=== PATIENT | female | born 1990 | race Caucasian/White ===

== ENCOUNTER 2023-10-16 16:45 | Outpatient (CLI) | payer MEDICAID | END 2023-10-16 16:46 | disposition critical access hospital (66) | LOC: EMS 16:45 | DX: J02.9 Acute pharyngitis, unspecified (principal); R13.10 Dysphagia, unspecified | CPT/HCPCS: A0425; A0429; A0999 ==

== ENCOUNTER 2023-10-16 17:09 | Emergency (ER) | payer MEDICAID ==
[2023-10-16 17:32] LABS: RAPID STREP SCREEN POSITIVE (Negative)
--- NOTE | 2023-10-16 18:22 | ED Physician Documentation ---
PD HPI URI - Stated complaint Stated Complaint: SORE THROAT - Chief complaint Chief Complaint: Heent - History obtained from History obtained from: Patient - History of Present Illness Timing - onset: How many days ago (2-3) Timing duration: Days (2-3) Timing details: Gradual onset, Still present Associated symptoms: Chills, Sore throat, Swollen nodes. No: Nasal congestion, Dry cough Contributing factors: No: Sick contact, Immunocompromised Similar symptoms before: Has not had sx before Review of Systems Constitutional: reports: Chills, Myalgias. 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: Other - Present Medications Home Medications: Ambulatory Orders Medication Instructions Recorded Confirmed Azithromycin [Zithromax] 250 mg PO DAILY 4 Days #4 tablet 10/16/23 - Allergies Allergies/Adverse Reactions: Allergies Allergy/AdvReac Type Severity Reaction Status Date / Time cefaclor [From Ceclor] Allergy Unknown Verified 10/16/23 17:13 Penicillins Allergy Unknown Verified 10/16/23 17:13 sulfamethoxazole Allergy Unknown Verified 10/16/23 17:13 [From Septra] trimethoprim [From Junra] Allergy Unknown Verified 10/16/23 17:13 - Social History Does the pt smoke?: Yes Smoking Status: Current every day smoker Does the pt drink ETOH?: No Does the pt have substance abuse?: Yes Substance Use and Type: Other - Immunizations Immunizations are current?: Yes PD ED PE NORMAL - Vitals Vital signs reviewed: Yes - General General: Alert and oriented X 3, No acute distress, Well developed/nourished - HEENT HEENT: Ears normal, Moist mucous membranes. No: Pharynx benign (redness with exudate both tonsils without peritonsilar swelling nor deviation. ) - Neck Neck: Supple, no meningeal sign, Other (anterior adenopathy noted. ) - Cardiac Cardiac: RRR, No murmur Results - Vitals Vitals: Vital Signs - 24 hr 10/16/23 10/16/23 17:13 19:46 Temperature 36.6 C 36.9 C Heart Rate 99 92 Respiratory 18 12 Rate Blood Pressure 125/96 H 127/98 H O2 Saturation 97 100 Oxygen O2 Source Room air - Labs Labs: Laboratory Tests 10/16/23 17:20 Group A Strep Rapid POSITIVE H PD Medical Decision Making - ED course Complexity details: considered differential (sothre throat with tonsillar swel ling and exudate with positive strep test. no peritonsillar swelling nor uvular deviation. ), d/w patient Departure - Departure Disposition: 01 Home, Self Care Clinical Impression: Acute streptococcal tonsillitis, unspecified Condition: Stable Record reviewed to determine appropriate education?: Yes Instructions: ED Strep Pharyngitis Conf Prescriptions: Azithromycin [Zithromax] 250 mg PO DAILY 4 Days #4 tablet Comments: Your strep test is positive. We started you on azithromycin antibiotic with 2 tablets this evening along with a dose of a Decadron steroid for inflammation. This commonly helps reduce the pain more promptly in conjunction with antibiotics. Take the azithromycin 250 mg tablet daily for 4 more days. There is some mild amount of MAC related/azithromycin resistance for the strep throats. Recheck if not resolved completely over the next few days. You will want to avoid close contact or sharing cups and drinking utensils etc. You are typically considered noninfectious after 24 hours on the antibiotics. I sent your prescription to the [facility]. Stay well-hydrated. Tylenol ibuprofen if needed for pains or fevers. It is okay to return to the [facility] detox center. Forms: PCP List Discharge Date/Time: 10/16/23 19:46
[2023-10-16] MEDS ORDERED: ACETAMINOPHEN 325 MG TABLET PO STA (18:35)
[2023-10-16] MEDS ORDERED: dexAMETHasone 4 MG TABLET PO STA (18:35)
[2023-10-16] MEDS ORDERED: diphenhydrAMINE ELIXIR 25 MG/10 ML UDC PO STA (18:35)
[2023-10-16] MEDS ORDERED: AZITHROMYCIN 250 MG TABLET PO STA ×2 (18:35→19:17)
[2023-10-16 19:51] VITALS: BP 127/98; O2SAT 100
== END 2023-10-16 19:46 | disposition home or self-care (01) ==
LOC: ED 17:09
DX: J03.00 Acute streptococcal tonsillitis, unspecified (principal); F17.200 Nicotine dependence, unspecified, uncomplicated
CPT/HCPCS: 87430; 99283; A9270; J8540

== ENCOUNTER 2023-10-18 18:19 | Outpatient (CLI) | payer MEDICAID | END 2023-10-18 18:20 | disposition critical access hospital (66) | LOC: EMS 18:19 | DX: R56.9 Unspecified convulsions (principal); R40.0 Somnolence | CPT/HCPCS: A0425; A0429; A0999 ==

== ENCOUNTER 2023-10-18 18:39 | Emergency (ER) | payer MEDICAID ==
--- NOTE | 2023-10-18 20:16 | ED Physician Documentation ---
History of Present Illness - Stated complaint Stated Complaint: SEIZURE - Chief complaint Chief Complaint: Neuro - History obtained from History obtained from: Patient - Additonal information Additional information: 33yF with pmh seizure disorder not previously on AED until 2 days ago when she checked into [facility] for fentanyl detox p/w 5 min witnessed [facility] seizure tonight. patient has been taking keppra 500mg bid at [facility] per chart review but states she was not on it previously. Has had seizure disorder X 5 years and has infrequent seizures. last sz about 1 year ago. denies fever, tam, nausea, pain anywhere, FND. 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: Other - Present Medications Home Medications: Ambulatory Orders Medication Instructions Recorded Confirmed Azithromycin [Zithromax] 250 mg PO DAILY 4 Days #4 tablet 10/16/23 Levetiracetam [Keppra] 750 mg PO BID #60 tablet 10/18/23 - Allergies Allergies/Adverse Reactions: Allergies Allergy/AdvReac Type Severity Reaction Status Date / Time cefaclor [From Ceclor] Allergy Unknown Verified 10/18/23 18:53 Penicillins Allergy Unknown Verified 10/18/23 18:53 sulfamethoxazole Allergy Unknown Verified 10/18/23 18:53 [From Septra] trimethoprim [From Septra] Allergy Unknown Verified 10/18/23 18:53 - Social History Does the pt smoke?: Yes Smoking Status: Current every day smoker Does the pt drink ETOH?: No Does the pt have substance abuse?: Yes Substance Use and Type: Other - Immunizations Immunizations are current?: Yes PD ED PE NORMAL - Vitals Vital signs reviewed: Yes - General General: Alert and oriented X 3, No acute distress, Well developed/nourished - HEENT HEENT: Atraumatic, PERRL, EOMI - Neck Neck: Supple, no meningeal sign - Cardiac Cardiac: RRR - Respiratory Respiratory: No respiratory distress, Clear bilaterally - Abdomen Abdomen: Non tender, Non distended - Derm Derm: Normal color, Warm and dry - Extremities Extremities: No deformity - Neuro Neuro: Alert and oriented X 3, 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, No motor deficit, No sensory deficit, Normal speech Eye Opening: Spontaneous Motor: Obeys Commands Verbal: Oriented GCS Score: 15 - Psych Psych: Normal mood, Normal affect Results - Vitals Vitals: Vital Signs - 24 hr 10/18/23 10/18/23 18:49 20:41 Temperature 36.5 C 36.4 C L Heart Rate 75 106 H Respiratory 22 21 Rate Blood Pressure 126/75 122/74 O2 Saturation 99 97 Oxygen O2 Source Room air - Labs Labs: Laboratory Tests 10/18/23 10/18/23 10/18/23 21:28 21:28 22:24 WBC 14.9 H RBC 4.03 L Hgb 12.4 Hct 36.7 L MCV 91.1 MCH 30.8 MCHC 33.8 RDW 13.2 Plt Count 404 MPV 8.2 Neut # (Auto) 11.4 H Lymph # (Auto) 2.7 Kendall # (Auto) 0.5 Eos # (Auto) 0.0 Baso # (Auto) 0.1 Absolute Nucleated RBC 0.00 Nucleated RBC % 0.0 Sodium Potassium Chloride Carbon Dioxide Anion Gap BUN Creatinine Estimated GFR (MDRD) Glucose Calcium Magnesium Total Bilirubin AST ALT Alkaline Phosphatase Total Protein Albumin Globulin Albumin/Globulin Ratio Lipase Urine Color YELLOW Urine Clarity HAZY Urine pH 6.0 Ur Specific [place] 1.025 Urine Protein TRACE Urine Glucose (UA) NEGATIVE Urine Ketones >=80 H Urine Occult Blood NEGATIVE Urine Nitrite NEGATIVE Urine Bilirubin NEGATIVE Urine Urobilinogen 1 (NORMAL) Ur Leukocyte Esterase NEGATIVE Urine RBC 0-5 Urine WBC 0-3 Ur Squamous Epith Cells MANY Squamous H Urine Bacteria Moderate H Ur Microscopic Review INDICATED Urine Culture Comments NOT INDICATED Urine HCG, Qual NEGATIVE Salicylates Urine Opiates Screen NEGATIVE Ur Buprenorphine Scrn NEGATIVE Ur Oxycodone Screen NEGATIVE Urine Methadone Screen NEGATIVE Acetaminophen Ur Barbiturates Screen NEGATIVE Ur Tricyclics Screen NEGATIVE Ur Phencyclidine Scrn NEGATIVE Ur Amphetamine Screen POSITIVE H U Methamphetamines Scrn POSITIVE H U Benzodiazepines Scrn NEGATIVE Urine Cocaine Screen NEGATIVE U Cannabinoids Screen NEGATIVE Ur Drug Screen Comment CUTOFF CONC BELOW: Ethyl Alcohol 10/18/23 22:24 WBC RBC Hgb Hct MCV MCH MCHC RDW Plt Count MPV Neut # (Auto) Lymph # (Auto) Kendall # (Auto) Eos # (Auto) Baso # (Auto) Absolute Nucleated RBC Nucleated RBC % Sodium 140 Potassium 3.7 Chloride 105 Carbon Dioxide 24 Anion Gap 11.0 BUN 27 H Creatinine 0.8 Estimated GFR (MDRD) 82 L Glucose 105 H Calcium 9.1 Magnesium 1.8 Total Bilirubin 0.2 AST 13 ALT 22 Alkaline Phosphatase 81 Total Protein 7.2 Albumin 4.0 Globulin 3.2 Albumin/Globulin Ratio 1.3 Lipase < 10 L Urine Color Urine Clarity Urine pH Ur Specific [place] Urine Protein Urine Glucose (UA) Urine Ketones Urine Occult Blood Urine Nitrite Urine Bilirubin Urine Urobilinogen Ur Leukocyte Esterase Urine RBC Urine WBC Ur Squamous Epith Cells Urine Bacteria Ur Microscopic Review Urine Culture Comments Urine HCG, Qual Salicylates < 1.5 Urine Opiates Screen Ur Buprenorphine Scrn Ur Oxycodone Screen Urine Methadone Screen Acetaminophen 2.1 Ur Barbiturates Screen Ur Tricyclics Screen Ur Phencyclidine Scrn Ur Amphetamine Screen U Methamphetamines Scrn U Benzodiazepines Scrn Urine Cocaine Screen U Cannabinoids Screen Ur Drug Screen Comment Ethyl Alcohol < 10.0 PD Medical Decision Making - ED course ED course: 33yF with pmh seizure disorder p/w seizure tonight with postictal period, now resolved. fingerstick unremarkable. call placed to neurology. patient not previously on AEDs until 2 days ago when she started keppra 500 bid. likely will need loading dose and to increase her prescription. d/w Dr. Fink, neurologist at [facility] re: patient seizure. He recommends CT head, cbc, abdominal panel, ua, hcg, tox screen, and if normal, referral to outpatient neurology and outpatient MRI and eeg. Recommend loading dose of keppra 1500 IV X 1 and then prescribing 750 bid keppra. Social determinants of care which may impede management and follow-up include history of fentanyl abuse. 9:30pm - patient with nbnb n/v. 11:30pm - patient in NAD, no longer symptomatic. nausea resolved s/p zofran. labwork uncovered leukocytosis with wbc 14.9 without other acute findings. tox screen positive for methamphetamine and amphetamines. advised outpatient f/u with neurology. Printed new script for keppra 750 mg po bid per Dr. Fink's recs. return precautions discussed. Departure - Departure Disposition: 01 Home, Self Care Clinical Impression: Seizure Condition: Stable Instructions: First Aid Seizures Follow-Up: Arlen Graham P, [Physician No Access] - Prescriptions: Levetiracetam [Keppra] 750 mg PO BID #60 tablet Comments: You were seen in the emergency department for Seizure. Legally, you cannot drive for 6 months after having a seizure. I am printing a prescription for 750 mg of Keppra twice daily which you should take instead of the 500 mg twice daily you have been taking for the past couple of days at [facility]. Please follow-up with neurology (referral provided) and return to the emergency department if you have any new or worsening symptoms or other concerns. Forms: PCP List
[2023-10-18] MEDS ORDERED: FAMOTIDINE 20 MG/2 ML VIAL IVP STA (21:41)
[2023-10-18] MEDS ORDERED: ONDANSETRON 4 MG/2 ML VIAL IVP STA (21:41)
[2023-10-18] MEDS ORDERED: SODIUM CHLORIDE 0.9% 1,000 ML IV STA (21:41)
[2023-10-18 21:42] LABS: BILIRUBIN,URINE NEGATIVE (NEGATIVE); GLUCOSE, URINE (UA) NEGATIVE (NEGATIVE); KETONES,URINE (UA) >=80 mg/dL (NEGATIVE); LEUKOCYTE ESTERASE, URINE NEGATIVE (NEGATIVE); NITRITE,URINE NEGATIVE (NEGATIVE); OCCULT BLOOD,URINE NEGATIVE (NEGATIVE); PROTEIN,URINE TRACE mg/dL (NEGATIVE); UROBILINOGEN,URINE 1 (NORMAL) E.U./dL (NORMAL)
[2023-10-18 21:45] LABS: CLARITY,URINE HAZY (CLEAR)
[2023-10-18 21:50] LABS: BACTERIA,URINE Moderate /HPF (None Seen); RBC,URINE 0-5 /HPF (0-5); SQUAMOUS EPITHELIAL CELL,UR MANY Squamous (<= Few); WBC,URINE 0-3 /HPF (0-5)
[2023-10-18 21:51] LABS: AMPHETAMINE SCREEN,URINE POSITIVE (NEGATIVE); BARBITURATE SCREEN,UR NEGATIVE (NEGATIVE); BENZODIAZEPINES SCREEN, URINE NEGATIVE (NEGATIVE); BUPRENORPHINE SCREEN, URINE NEGATIVE (NEGATIVE); COCAINE SCREEN URINE NEGATIVE (NEGATIVE); HCG UR QUAL NEGATIVE; METHADONE SCREEN, URINE NEGATIVE (NEGATIVE); METHAMPHETAMINES SCREEN, URINE POSITIVE (NEGATIVE); OPIATE SCREEN, URINE NEGATIVE (NEGATIVE); OXYCODONE SCREEN, URINE NEGATIVE (NEGATIVE); THC CANNABINOID SCREEN, URINE NEGATIVE (NEGATIVE); TRICYCLIC ANTIDEPRESSANT,URINE NEGATIVE (NEGATIVE)
[2023-10-18 22:33] LABS: BASOPHILS # (AUTO) 0.1 10^3/uL (0.0-0.1); BASOPHILS % (AUTO) 0.4 %; EOSINOPHILS % (AUTO) 0.1 %; HCT - HEMATOCRIT 36.7 % (37.0-47.0); HGB - HEMOGLOBIN 12.4 g/dL (12.0-16.0); LYMPHOCYTES # (AUTO) 2.7 10^3/uL (1.5-3.5); LYMPHOCYTES % (AUTO) 18.4 %; MEAN CORPUSCULAR HEMOGLOBIN 30.8 pg (27.0-31.0); MEAN CORPUSCULAR HGB CONC 33.8 g/dL (32.0-36.0); MEAN CORPUSCULAR VOLUME 91.1 fL (81.0-99.0); MEAN PLATELET VOLUME 8.2 fL (7.9-10.8); MONOCYTES # (AUTO) 0.5 10^3/uL (0.0-1.0); MONOCYTES % (AUTO) 3.2 %; NEUTROPHILS # (AUTO) 11.4 10^3/uL (1.5-6.6); NEUTROPHILS % (AUTO) 76.3 %; PLT - PLATELET COUNT 404 10^3/uL (130-450); RED BLOOD COUNT 4.03 10^6/uL (4.20-5.40); RED CELL DISTRIBUTION WIDTH 13.2 % (12.0-15.0); WHITE BLOOD COUNT 14.9 x10^3/uL (4.8-10.8)
[2023-10-18 22:44] LABS: CARBON DIOXIDE - CO2 24 mmol/L (21-32); CHLORIDE 105 mmol/L (101-111); POTASSIUM 3.7 mmol/L (3.5-4.5); SODIUM 140 mmol/L (135-145)
[2023-10-18 22:45] LABS: ACETAMINOPHEN 2.1 ug/mL; ALBUMIN/GLOBULIN RATIO 1.3 (1.0-2.2); ALKALINE PHOSPHATASE 81 IU/L (42-121); ALT ALANINE AMINOTRANSFERASE 22 IU/L (10-60); AST ASPARTATE AMINOTRANSFERASE 13 IU/L (10-42); BILIRUBIN,TOTAL 0.2 mg/dL (0.2-1.0); BUN - BLOOD UREA NITROGEN 27 mg/dL (6-20); CALCIUM 9.1 mg/dL (8.5-10.3); CREATININE 0.8 mg/dL (0.6-1.3); ETOH - ETHANOL < 10.0 mg/dL; GFR - MDRD 82 (>89); GLUCOSE 105 mg/dL (74-104); LIPASE < 10 U/L (11-82); MAGNESIUM 1.8 mg/dL (1.7-2.3); SALICYLATE < 1.5 mg/dL; TOTAL PROTEIN 7.2 g/dL (6.4-8.9)
[2023-10-18] MEDS ORDERED: levETIRAcetam INJ 1,500 MG in SODIUM CHLORIDE 0.9% 100ML 100 ML IV SCH (23:00)
--- NOTE | 2023-10-18 23:08 | CT Report ---
PROCEDURE: HEAD WO INDICATIONS: seizure TECHNIQUE: Noncontrast 4.5 mm thick angled axial sections acquired from the foramen magnum to the vertex. For r adiation dose reduction, the following was used: automated exposure control, adjustment of mA and/or kV according to patient size. COMPARISON: None. FINDINGS: Image quality: Excellent. CSF spaces: Basal cisterns are patent. No extra-axial fluid collections. Ventricles are normal in size and shape. Brain: No midline shift. No intracranial masses or hemorrhage. Farmer-white matter interface is norm al. Skull and face: Calvarium and visualized facial bones are intact, without suspicious lesions. Sinuses: Visualized sinuses and mastoids are clear. IMPRESSION: 1. No acute intracranial process. Reviewed by: Karyna Wilhelm MD on 10/18/2023 11:07 PM [facility] Approved by: Karyna Wilhelm MD on 10/18/2023 11:07 PM [facility] Station ID: [id number]
[2023-10-18] MEDS ORDERED: levETIRAcetam 500 MG/5 ML VIAL IVP STA (23:23)
[2023-10-19 00:34] VITALS: BP 135/85; O2SAT 94
== END 2023-10-19 00:48 | disposition home or self-care (01) ==
LOC: EDUNIT# → ED 18:39
DX: G40.409 Other generalized epilepsy and epileptic syndromes, not intractable, without status epilepticus (principal); F17.200 Nicotine dependence, unspecified, uncomplicated; Z79.899 Other long term (current) drug therapy
CPT/HCPCS: 36415; 80053; 80306; 80307; 80320; 80329; 81001; 81003; 81025; 83690; 83735; 85025; 87086; 96365; 96375; 99284

== ENCOUNTER 2023-10-22 08:19 | Outpatient (CLI) | payer MEDICAID | END 2023-10-22 23:59 | disposition critical access hospital (66) | LOC: EMS 08:19 | DX: R11.2 Nausea with vomiting, unspecified (principal); R10.9 Unspecified abdominal pain; R29.6 Repeated falls; R55 Syncope and collapse | CPT/HCPCS: A0425; A0427; A0999 ==

== ENCOUNTER 2023-10-22 08:36 | Emergency (ER) | payer MEDICAID ==
[2023-10-22] MEDS ORDERED: diphenhydrAMINE INJ 50 MG/ML VIAL IVP STA (09:03)
[2023-10-22] MEDS ORDERED: PROCHLORPERAZINE 10 MG/2 ML VIAL IVP STA (09:03)
[2023-10-22] MEDS ORDERED: SODIUM CHLORIDE 0.9% 1,000 ML IV STA (09:03)
--- NOTE | 2023-10-22 09:05 | ED Physician Documentation ---
History of Present Illness - Stated complaint Stated Complaint: N/V/FALL - Additonal information Additional information: Patient 33-year-old female coming to the emergency department with complaints of nausea, vomiting, generalized weakness, and a fall this morning. Comes to us via EMS from local detox facility where she is in treatment for fentanyl and amphetamine abuse. Reports she has been persistently nauseated since starting her treatment 5 days ago. Denies similar episodes of nausea in the past. Today slipped and fell but denies any head trauma or loss of consciousness. Has been receiving Zofran at the facility with minimal relief to her symptoms. She also has a past medical significant for seizure disorder with recent evaluation in the emergency department. She is currently taking Keppra 750 mg twice daily. Denies fever, chills, chest pain, shortness of breath, diarrhea, constipation, known sick contacts. Review of Systems Constitutional: denies: Fever Eyes: denies: Loss of vision Ears: denies: Loss of hearing Nose: denies: Rhinorrhea / runny nose Throat: denies: Dental pain / toothache Cardiac: denies: Chest pain / pressure Respiratory: denies: Dyspnea GI: reports: Nausea, Vomiting. 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: Other - Present Medications Home Medications: Ambulatory Orders Medication Instructions Recorded Confirmed Azithromycin [Zithromax] 250 mg PO DAILY 4 Days #4 tablet 10/16/23 10/18/23 Levetiracetam [Keppra] 750 mg PO BID #60 tablet 10/18/23 Prochlorperazine [Compazine] 5 mg PO Q6H #15 tablet 10/22/23 - Allergies Allergies/Adverse Reactions: Allergies Allergy/AdvReac Type Severity Reaction Status Date / Time cefaclor [From Ceclor] Allergy Unknown Verified 10/18/23 18:53 Penicillins Allergy Unknown Verified 10/18/23 18:53 sulfamethoxazole Allergy Unknown Verified 10/18/23 18:53 [From Septra] trimethoprim [From ] Allergy Unknown Verified 10/18/23 18:53 - Social History Does the pt smoke?: Yes Smoking Status: Current every day smoker Does the pt drink ETOH?: No Does the pt have substance abuse?: Yes - Immunizations Immunizations are current?: Yes PD ED PE NORMAL - Vitals Vital signs reviewed: Yes (WNL) - General General: Alert and oriented X 3, No acute distress - HEENT HEENT: Atraumatic - Neck Neck: Supple, no meningeal sign - Cardiac Cardiac: RRR - Respiratory Respiratory: No respiratory distress - Abdomen Abdomen: Normal bowel sounds - Female Female : Deferred - Rectal Rectal: Deferred - Back Back: No CVA TTP - Derm Derm: Normal color - Extremities Extremities: No deformity Results - Vitals Vitals: Vital Signs - 24 hr 10/22/23 10/22/23 08:41 10:43 Temperature 36.2 C L Heart Rate 71 61 Respiratory 18 16 Rate Blood Pressure 126/78 122/75 O2 Saturation 97 93 Oxygen O2 Source Room air - Labs Labs: Laboratory Tests 10/22/23 10/22/23 10/22/23 08:52 09:14 09:14 WBC 19.9 H RBC 4.46 Hgb 13.5 Hct 39.7 MCV 89.0 MCH 30.3 MCHC 34.0 RDW 13.2 Plt Count 429 MPV 8.0 Neut # (Auto) 15.7 H Lymph # (Auto) 3.1 [place] # (Auto) 0.7 Eos # (Auto) 0.1 Baso # (Auto) 0.1 Absolute Nucleated RBC 0.00 Nucleated RBC % 0.0 Sodium 136 Potassium 3.7 Chloride 103 Carbon Dioxide 25 Anion Gap 8.0 BUN 20 Creatinine 1.0 Estimated GFR (MDRD) 63 L Glucose 105 H Calcium 9.1 Total Bilirubin 0.3 AST 14 ALT 19 Alkaline Phosphatase 75 Total Protein 7.1 Albumin 4.2 Globulin 2.9 Albumin/Globulin Ratio 1.4 Lipase 12 Urine Color YELLOW Urine Clarity SL. CLOUDY Urine pH 6.0 Ur Specific [place] >=1.030 H Urine Protein TRACE Urine Glucose (UA) NEGATIVE Urine Ketones 40 H Urine Occult Blood NEGATIVE Urine Nitrite NEGATIVE Urine Bilirubin NEGATIVE Urine Urobilinogen 0.2 (NORMAL) Ur Leukocyte Esterase NEGATIVE Urine RBC None Seen Urine WBC 4-5 Ur Squamous Epith Cells MANY Squamous H Urine Bacteria Few Urine Mucus Marked Strands Ur Microscopic Review INDICATED Urine Culture Comments NOT INDICATED Urine HCG, Qual NEGATIVE PD Medical Decision Making - ED course Complexity details: reviewed results, re-evaluated patient, d/w patient ED course: Patient 33-year-old female presenting to the emergency department with nausea vomiting. This is in the setting of active withdrawal from opiate and methamphetamines. She does come from local area detox facility. Afebrile, hemodynamically stable on arrival to the emergency department. Urinalysis demonstrates an elevated specific gravity and ketones consistent with a generally fluid downstate. IV access was obtained. Labs demonstrated leukocytosis with bandemia but there is nothing in her clinical presentation to suggest active bacterial infection or sepsis. She is given IV hydration, Compazine, Benadryl. She did have a brief vagal moment after receiving IV Benadryl. An EKG was obtained which does not demonstrate any indications of acute cardiac ischemia or dysrhythmia. She reported feeling somewhat better after the administration of these medications. She has been receiving ondansetron at the detox facility to help with her symptoms but given her persistent nausea I will transition her to Compazine. This prescription was sent to her preferred pharmacy. She was encouraged to continue her treatment at detox and to follow-up with her primary care doctor or return to the emergency department for new or worsening symptoms. Departure - Departure Disposition: 01 Home, Self Care Clinical Impression: Opiate withdrawal Leukocytosis Qualifiers: Leukocytosis type: bandemia Qualified Code(s): D72.825 - Bandemia Prescriptions: Prochlorperazine [Compazine] 5 mg PO Q6H #15 tablet Comments: Thank you for allowing us to care for you today at [facility]. Today in the emergency department you are given IV fluids and medication to help with your nausea. I also sent a prescription for an alternative nausea medication to your preferred pharmacy, [facility]. Please be aware that they will be closed today but I do encourage you to berry picker this prescription or have it be picked up on your behalf is soon as possible. Please work towards staying well- hydrated. It can be challenging particularly in the setting of active detox however I do encourage you to take small sips of electrolyte containing fluid regularly throughout the days. I wish you luck on your ongoing path to recovery. If it anytime you have new or worsening symptoms please not hesitate to return. Forms: PCP List
[2023-10-22 09:18] LABS: GLUCOSE, URINE (UA) NEGATIVE (NEGATIVE); KETONES,URINE (UA) 40 mg/dL (NEGATIVE); LEUKOCYTE ESTERASE, URINE NEGATIVE (NEGATIVE); NITRITE,URINE NEGATIVE (NEGATIVE); OCCULT BLOOD,URINE NEGATIVE (NEGATIVE); PROTEIN,URINE TRACE mg/dL (NEGATIVE); UROBILINOGEN,URINE 0.2 (NORMAL) E.U./dL (NORMAL)
[2023-10-22 09:19] LABS: CLARITY,URINE SL. CLOUDY (CLEAR)
[2023-10-22 09:20] LABS: BASOPHILS # (AUTO) 0.1 10^3/uL (0.0-0.1); BASOPHILS % (AUTO) 0.5 %; EOSINOPHILS # (AUTO) 0.1 10^3/uL (0.0-0.7); EOSINOPHILS % (AUTO) 0.3 %; HCT - HEMATOCRIT 39.7 % (37.0-47.0); HGB - HEMOGLOBIN 13.5 g/dL (12.0-16.0); LYMPHOCYTES # (AUTO) 3.1 10^3/uL (1.5-3.5); LYMPHOCYTES % (AUTO) 15.7 %; MEAN CORPUSCULAR HEMOGLOBIN 30.3 pg (27.0-31.0); MONOCYTES # (AUTO) 0.7 10^3/uL (0.0-1.0); MONOCYTES % (AUTO) 3.4 %; NEUTROPHILS # (AUTO) 15.7 10^3/uL (1.5-6.6); NEUTROPHILS % (AUTO) 78.7 %; PLT - PLATELET COUNT 429 10^3/uL (130-450); RED BLOOD COUNT 4.46 10^6/uL (4.20-5.40); RED CELL DISTRIBUTION WIDTH 13.2 % (12.0-15.0); WHITE BLOOD COUNT 19.9 x10^3/uL (4.8-10.8)
[2023-10-22 09:20] LABS: HCG UR QUAL NEGATIVE
[2023-10-22 09:21] LABS: BILIRUBIN,URINE NEGATIVE (NEGATIVE); ICTOTEST,URINE NEGATIVE
[2023-10-22 09:28] LABS: BACTERIA,URINE Few /HPF (None Seen); RBC,URINE None Seen /HPF (0-5); SQUAMOUS EPITHELIAL CELL,UR MANY Squamous (<= Few)
[2023-10-22 09:29] LABS: MUCUS,URINE Marked Strands
[2023-10-22 09:35] LABS: ALBUMIN 4.2 g/dL (3.2-5.5); ALBUMIN/GLOBULIN RATIO 1.4 (1.0-2.2); BILIRUBIN,TOTAL 0.3 mg/dL (0.2-1.0); CALCIUM 9.1 mg/dL (8.5-10.3); POTASSIUM 3.7 mmol/L (3.5-4.5); TOTAL PROTEIN 7.1 g/dL (6.4-8.9)
[2023-10-22 11:08] VITALS: BP 122/75; O2SAT 93
== END 2023-10-22 14:25 | disposition home or self-care (01) ==
LOC: EDUNIT# → ED 08:36
DX: F11.23 Opioid dependence with withdrawal (principal); D72.825 Bandemia; R55 Syncope and collapse; T45.0X5A Adverse effect of antiallergic and antiemetic drugs, initial encounter; Y92.538 Other ambulatory health services establishments as the place of occurrence of the external cause; F17.200 Nicotine dependence, unspecified, uncomplicated
CPT/HCPCS: 36415; 80053; 81001; 81025; 83690; 85025; 93005; 96374; 99283; 99284; J1200; 81003; 87086